=== PATIENT | female | born 1985 | race Caucasian/White ===

== ENCOUNTER 2025-04-10 09:56 | Outpatient (AMB) | payer BC, SELFPAY ==
--- NOTE | 2025-04-10 09:59 | A.OFFPC_ITS ---
Vital Signs 04/10/25 10:11 Height 5 ft 3 in Weight 118 lb 6 oz BMI 21.0 BP 108/62 Blood Pressure Location Rt brachial Position Sitting Pulse 66 Pulse Source Pulse Oximeter Temp 97.9 F Temp Source Temporal Artery Scan Pulse Oximetry (%) 100 Oxygen Delivery Method Room Air Intake Visit Reasons: ests care mole/growth on arm Intake Note: Amy presents in the office today to establish care. Patient refused both Tdap and Flu Shot. Allergies acetaminophen (From Excedrin Migraine) Allergy (Verified 04/10/25 10:42) Eye Swelling aspirin (From Excedrin Migraine) Allergy (Verified 04/10/25 10:42) Eye Swelling caffeine (From Excedrin Migraine) Allergy (Verified 04/10/25 10:42) Eye Swelling ibuprofen Allergy (Verified 04/10/25 10:42) Eye Swelling Seasonal Allergies Allergy (Verified 04/10/25 10:42) Congestion prednisone Adverse Reaction (Unknown, Verified 04/10/25 10:42) Rash Medication List - Last Reviewed 04/10/25 by Nkechi Patterson, POWER REGULATOR cholecalciferol (vitamin D3) 10 mcg PO DAILY choriogonadotropin tana,humrec (Ovidrel) mcg subcut 2XW docosahexaenoic acid ( DHA) mg PO estradiol 3 mg PO BID estradiol 2 mg PO BID follitropin tana (Gonal-F RFF Redi-Ject) 375 units subcut DAILY ganirelix mcg subcut DAILY levothyroxine 100 mcg PO DAILY medroxyprogesterone 10 mg PO DAILY menotropins (Menopur) units subcut DAILY Tobacco use date assessed: 04/10/25 Dental Screening Dental Screen Date: 04/10/25 Did you have a dental visit in the last 12 months?: Yes Did you have a dental problem in the last 6 months where you did not have access to dental care?: No Was dental information given to patient?: Patient has dentist HPI HPI Comments History of Present Illness Details 39 y/o f with hypothyroid, hx of miscarr iage, Surgery: tonsils and adenoids; ear tubes as child; breast augmentation 2020 silicone; Hysteroscopy 01/2024 & 08/2024, IVF egg retrieval Fhx: Mom with CVD; Dad with HTN, thyroid, PGM HTN, thyroid; 1 sibling with asthma Social: lives w/ , 1 dog. 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 - Stable thyroid function. - Last TSH at 1.33 on January 03. Infertility: - Undergoing IVF cycle. - Previous estrogen cycles unsuccessful due to insufficient endometrial lining response. - Transitioned to injections resulting i n improvement. - One viable embryo from last cycle, leonor toby normal. Anxiety associated with infertility treatment: - Anxiety linked to IVF procedures and m edication regimens. History of recurrent loss: - Four prior losses. - Incomplete miscarriage previously nece ssitated a D&C. Seasonal Allergy: - Documented allergies. Medication Allergy: - Unilateral eyelid swelling with ibupro fen and Excedrin migraine. - Rash reaction with prednisone. Past Surgical History - Tonsillectomy and adenoidectomy in ear ly childhood - Breast augmentation with saline implan ts - Dilation and curettage (D&C) following loss Family History - Mother has history of open-heart surge ry in childhood. - Father and paternal grandfather have k idney-related issues; grandfather nearing dialysis. 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 - Lives with and owns a dog. - Currently undergoing IVF treatment; [address] four years residing in current area. - Expresses anxiety related to medical t reatment, specifically linked to infert ility. - No reported history of substance use o r significant dietary restrictions. Health Maintenance - Recent eye exam. - Up-to-date on Pap smears and general w ellness checks. - Ongoing management of thyroid function with regular monitoring. - Discussed undergoing machine cloth trimmer dee rodríguez for routine skin evaluation. Review of Systems - Endocrine: Reports stable thyroid func tion post-radioactive iodine therapy. - Reproductive: Reports undergoing IVF, concerns with endometrial lining in past cycles. - Psychological: Reports anxiety specifi c to fertility treatments. - Allergies: Reports allergies to season al allergens, ibuprofen, Excedrin migraine, and prednisone. - Skin crusted growth l arm that fell of f; has 2 other areas that are similar Physical Exam General: Well developed, well nourished, in no acute distress. Appears stated age. Head: Normocephalic, atraumatic. Eyes: Pupils are equal, round and reactive to light and accommodation. Conjunctivae are clear. Vision grossly normal. Ears: TMs clear AU, EACS WNL. No hearing problems reported. Nose: Patent, without discharge. Neck: Supple, no adenopathy or thyromegaly. No thyroid nodules reported. Breast: Edu on SBE. Augmentation with implants noted, no issues reported. Lungs: Clear to auscultation bilaterally. No rales, rhonchi or wheeze noted. Good air flow in all haines. Heart: Regular rate and rhythm. No murmurs, click, rubs or gallops are noted. Abdomen: Bowel sounds present in all quadrants. The abdomen is soft, nontender, with no masses or organomegaly noted. No hernias are noted. : Deferred. Reviewed recommendations for routine DOCUMENTATION SUPERVISOR. Pulses: Peripheral pulses are equal and palpable bilaterally. Extremities: No clubbing, cyanosis nor edema is noted. Neurologic: Gait and station normal. Cranial Nerves 2-12 intact. Motor strength grossly symmetrical and intact. No sensory loss. Balance normal. Skin: No rashes, ulcers, or lesions noted. Turgor is good. Skin color is good. Hair and nails are without abnormalities. L upper arm flat red macule, one below that is raised w/ white crusting Psych: Normal eye contact, affect and mood appropriate, and normal interactions. Patient is alert and appropriate to context. Anxiety related to current fertility treatments noted. Results Pending Discussion Notes During the conversation, I explained the importance of ongoing thyroid monitoring, particularly in conjunction with her IVF treatment. I discussed the benefit of endocrinology consultation to optimize thyroid management during and after conception. With our patient currently in the middle of an IVF cycle, I emphasized the urgency of an endocrinology referral to manage potential thyroid changes. We talked about her recent fertility efforts and how these connect to previous pregnancies and miscarriages. The patient was informed about each step, including the requirement for TSH re-assessment and the role of dermatology in addressing longstanding dermatological concerns. We discussed potential skin findings and arranged for a dermatological evaluation. Additionally, I recommended continued monitoring of her kidney function given her family history. We talked through her anxiety with fertility treatments, reassuring her of psychological support resources. Patient was given time to ask questions. All questions were answered to their satisfaction. Assessment and Plan 1. Hypothyroidism post-radioactive iodin e therapy for hyperthyroidism - Endocrinology referral. - TSH testing. 2. Infertility - Urgent endocrinology referral. - Continue IVF. 3. Anxiety associated with infertility t reatment - Emotional support resources. 4. History of recurrent loss - Document history. 5. Seasonal Allergy - Avoid allergens. 6. Medication Allergy - Avoid known allergens. 7. Dermatology Referral - Dermatology consultation. Patient Instructions - Call endocrinology to schedule your ap pointment. - Get TSH testing one week before your e ndocrinology visit. - Attend all scheduled IVF appointments. - Avoid medications that you are allergi c to. - Know that it?s okay to reach out for e motional support. - Schedule derm appt - RTO 1 year CPE sooner as needed. Consent The patient provided informed consent for the urgent referral to endocrinology and the plan to conduct TSH testing prior to the visit. I explained the importance of optimizing thyroid function in the context of IVF treatment to reduce risks associated with hypothyroidism in . Furthermore, consent was obtained for dermatological evaluation given potential skin changes noted and her personal concern, with acknowledgment of usual wait times for appointments. The patient verbalized understanding and agreed to the outlined management processes. Patient was informed and verbally consented to the use of an ambient scribe for clinic note documentation during this visit. An additional 30 minutes was spent addressing the problem(s) noted at todays visit. This includes time spent before the visit reviewing the chart, time spent during the visit, and time spent after the visit on documentation reviewing laboratory results, diagnostic imaging, medications, performing a medically necessary evaluation, counseling on diagnoses, care coordination, ordering appropriate tests, ordering appropriate medications, review of tests performed by other providers, reporting test results with the patient, communication with other healthcare providers. PFSH Family History (Updated 04/10/25 @ 10:10 by Nkechi Patterson CMA) Brother FH: mental illness Bipolar 1 disorder Social History (Updated 04/10/25 @ 10:11 by Nkechi Patterson CMA) Housing: House Alcohol intake: current Patient Tobacco Use Status: Never used Tobacco e-Cigarette/Vaping Use: Never Used Second Hand Smoke Exposure: No service: No Current occupational status: employed Current occupation: Dairy Husbandman Current occupational exposures/hazards: No Cognitive needs: No Hearing needs: No Vision needs: No Questionnaire PHQ-9 Over the last 2 weeks, how often have you been bothered by any of the following problems? 1. Little interest or pleasure in doing things: not at all 2. Feeling down, depressed, or hopeless: not at all 3. Trouble falling or staying asleep, or sleeping too much: not at all 4. Feeling tired or having little energy: not at all 5. Poor appetite or overeating: not at all 6. Feeling bad about yourself - or that you are a failure or have let yourself or your family down: not at all 7. Trouble concentrating on things, such as reading the newspaper or watching television: not at all 8. Moving or speaking so slowly that other people could have noticed. Or the opposite - being so fidgety or restless that you have been moving around a lot more than usual: not at all 9. Thoughts that you would be better off or of hurting yourself in some way: not at all Total score: 0 Depression Screening Interpretation: Negative Depression Screening Done: Yes 12397 - PHQ-9 Billing: Yes Source: Developed by Drs. Luis Gallardo, Kristina Hughes, Senthil Moreno and colleagues, with an educational maico from [employer]. Thrive Questionnaire Date Thrive assessed: 04/10/25 I am a: Patient What is your living situation today?: I have a steady place to live Within the past 12 months, did the food you bought not last and you didn't have the money to get more?: Never true Within the past 12 months, did you worry whether your food would run out before you got money to buy more?: Never true Do you have trouble paying for medicines?: No Do you have trouble getting transportation to medical appointments?: No Do you have trouble paying your heating and electricity bill?: No Do you have trouble taking care of your child, family member or friend?: No Do you have trouble with day-to-day activities such as bathing, preparing meals, shopping, managing finances, etc.?: No Are you currently unemployed and looking for a job?: No Are you interested in more education?: No Please select the resources that you would like help with: None Currently or been in a relationship where the following occur: No concerns reported THRIVE Score: 0 AUDIT C Alcohol Use Questionnaire (AUDIT-C) 1. How often do you have a drink containing alcohol?: Monthly or less 2. How many drinks containing alcohol do you have on a typical day when you are drinking?: 1 or 2 3. How often do you have six or more drinks on one occasion?: Never Total Score: 1 Score Reviewed/Action Taken: Yes CHRISSY-7 AMB Questionnaire CHRISSY-7 Date CHRISSY - 7 assessed: 04/10/25 Feeling nervous, anxious, or on edge: 1 = Several days Not being able to stop or control worryin = Not at all Worrying too much about different things: 0 = Not at all Trouble relaxin = Not at all Being so restless that it is hard to sit still: 0 = Not at all Becoming easily annoyed or irritable: 0 = Not at all Feeling afraid as if something awful might happen: 0 = Not at all Total CHRISSY-7 score (0-4 normal; 5-9 mild; 10-14 moderate; 15-21 severe): 1 Source: Developed by Drs. Luis Gallardo, Kristina Hughes, Senthil Moreno and colleagues, with an educational maico from [employer]. CHRISSY-7 Assessment Billing HCRISSY-7 Assessment Tool: CHRISSY-7 Assessment 93680 Physical exam (Primary Care) Vital Signs: Last Vital Signs Temp 97.9 F 04/10/25 10:11 Pulse 66 04/10/25 10:11 BP 108/62 04/10/25 10:11 Pulse Ox 100 04/10/25 10:11 Oxygen Delivery Method Room Air 04/10/25 10:11 BMI result Body Mass Index 21.0 Tobacco/Smoking Status: Tobacco use Status Tobacco use date assessed 04/10/25 04/10/25 10:14 Patient Tobacco Use Status Never used Tobacco 04/10/25 10:14 e-Cigarette/Vaping Use Never Used 04/10/25 10:14 PHQ-9: PHQ-9 Score PHQ-9: Total score 0 04/10/25 10:01 Depression Screening Interpretation: Negative Thrive Assessment: Date of Thrive Assessment Date Thrive assessed 04/10/25 04/10/25 10:01 Currently or been in a relationship where the following occur: No concerns reported Coding Level of Care Code New Pt Level 3 (26700) New Pt Prev Care 18-39yr(50537 Diagnoses Encounter to establish care with new provider Z76.89 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 Influenza vaccination declined Z28.21 Tetanus, diphtheria, and acellular pertussis (Tdap) vaccination declined Z28.21 Infertility management Z31.9 Laboratory exam ordered as part of routine general medical examination Z00.00 Hx of migraines Z86.69 Seasonal allergies J30.2 Skin lesion L98.9 Encounter for general adult medical examination without abnormal findings Z00.00 Additional Codes CHRISSY-7 Assessment Billing - CHRISSY-7 Assessment Tool: CHRISSY-7 Assessment 88949 ([id number]) PHQ-9 - 57859 - PHQ-9 Billing: Yes ([id number]) Assessment & Plan Assessment & Plan (1) Encounter to establish care with new provider: Code(s): Z76.89 - Persons encountering health services in other specified circumstances (2) Hypothyroid: Code(s): E03.9 - Hypothyroidism, unspecified Category: Medical Qualifiers: Hypothyroidism type: due to William's thyroiditis Qualified Code(s): E06.3 - Autoimmune thyroiditis (3) Influenza vaccination declined: Code(s): Z28.21 - Immunization not carried out because of patient refusal Category: Medical (4) Tetanus, diphtheria, and acellular pertussis (Tdap) vaccination declined: Code(s): Z28.21 - Immunization not carried out because of patient refusal Category: Medical (5) Infertility management: Comment: [facility] Code(s): Z31.9 - Encounter for procreative management, unspecified Category: Medical (6) Laboratory exam ordered as part of routine general medical examination: Code(s): Z00.00 - Encounter for general adult medical examination without abnormal findings Category: Medical (7) Hx of migraines: Code(s): Z86.69 - Personal history of other diseases of the nervous system and sense organs Category: Medical (8) Seasonal allergies: Code(s): J30.2 - Other seasonal allergic rhinitis Category: Medical (9) Skin lesion: Code(s): L98.9 - Disorder of the skin and subcutaneous tissue, unspecified Category: Medical (10) Encounter for general adult medical examination without abnormal findings: Onset Date: ~04/10/25 Code(s): Z00.00 - Encounter for general adult medical examination without abnormal findings Category: Medical Plan . Orders: Orders TSH reflex Free T4 Today E06.3 - Autoimmune thyroiditis Lipid Panel Today E06.3 - Autoimmune thyroiditis, Z00.00 - Encounter for general adult medical examination without abnormal findings Comprehensive Met. Panel Today E06.3 - Autoimmune thyroiditis, Z00.00 - Encounter for general adult medical examination without abnormal findings Referrals Endocrinology Referral E06.3 - Autoimmune thyroiditis Dermatology Referral L98.9 - Disorder of the skin and subcutaneous tissue, unspecified Patient Instructions: Walk-In Care (Urgent Care): We Make it Easy Walk-in for urgent medical issues such as: ? Seasonal Allergies ? Insect Bites ? Cough ? Diarrhea ? Acute Asthma Attacks ? Back, Knee or Joint Pain ? Ear Infection ? Fever without a Rash ? Headaches ? Nausea ? Miller Eye, Rash or Skin Irritation ? Sore Throat ? Sports Physicals ? Vomiting Most insurances are accepted. Patients do not need to be part of the [facility] to seek care at the walk-in clinic. Locations [facility] [place] [address] ? [phone] [facility] Walk-In Care in [place] provides services to ages 18 and over. Open Tuesday-Tuesday: 7 a.m. to 5 p.m. and Tuesday: 9 a.m. to 3 p.m.* *Hours may vary due to staffing availability. To confirm Walk-In Care hours in [place], please call [phone]. [address] [place] [address] ? [phone] [facility] Walk-In Care in [place] provides services to ages 12 and over. Open Tuesday-Tuesday: 8 a.m. to 5 p.m. Hours may vary due to staffing availability. To confirm Walk-In Care hours in [place], please call [phone]. LABORATORY SERVICES: [facility] ? Primary Location [address] [place] [address] Tuesday through Tuesday 6:00 AM ? 5:00 PM Tuesday 7:00 AM ? 11:00 AM* [phone] The [facility] is centrally located near the front entrance of the [facility] for easy outpatient access. Convenient parking is provided for outpatients. *Hours may vary due to staffing availability. To confirm Laboratory hours for any location, please call [phone]. Offsite Location For your convenience, we offer offsite laboratory draw stations at the following locations: [address] [facility], [place] ? [facility] [address] [facility] [address], [address], [place] Tuesday through Tuesday 7:30 AM ? 1:00 PM* [phone] *Hours may vary due to staffing availability. To confirm Laboratory hours for any location, please call [phone]. [place] ? [facility] [address] [facility] [place], [place] Tuesday through Tuesday 6:00 AM ? 3:30 PM* Tuesday 6:30 AM ? 3 PM* [phone] *Hours may vary due to staffing availability. To confirm Laboratory hours for any location, please call [phone] [place] [address] Tuesday through Tuesday 7:30 AM ? 4:00 PM* [phone] *Hours may vary due to staffing availability. To confirm Laboratory hours for any location, please call [phone] [place] [address] Tuesday through 9:00 AM ? 4:00 PM* *Hours may vary due to staffing availability. To confirm Laboratory hours for any location, please call [phone]. Appointments are not necessary. Walk-ins are welcome. Like all the departments throughout the [facility], our Lab undergoes frequent reviews to ensure the quality and accuracy of test results, and our staff takes special pride in its status as a nationally accredited facility. Patient Portal: [facility] ONE PATIENT. ONE RECORD. BETTER CARE. [facility] has a fully integrated, cutting- edge mobile electronic health information system that has revolutionized the way we care for our patients and manage our organization. This system improves communication and coordination enabling us to provide safe, higher-quality care, and an overall positive experience for staff and patients. Our first priority, as always, is to deliver the highest quality care possible. The system is running in the background supporting that priority. This portal is for all [facility] services and practices. If you are experiencing any technical difficulties with enrolling or logging into the Patient Portal please complete the [facility] Patient Portal Technical Support Form. [facility] now offers a new secure on-line interactive tool for patients to review their health information ? ?Patient Portal. This interactive web portal will enable patients and their families to take an active role in their care by providing easy, secure access to their health information via the internet. The Patient Portal provides patients with instant access to their health information, including laboratory results, medications, allergies, demographic information, visit history, and more. In addition to managing their own care, parents and health care proxies with authorized consent will appreciate the ability to access the records of those individuals for whom they provide care. Please note: if you wish to gain access (Proxy) to another patient?s portal, you will be required to come to the Medical Records Department in person at [facility]. Both the patient giving proxy access and the proxy will need to provide photo identification and complete the appropriate authorization. The Patient Portal also allows track their appointments online. The [facility] Patient Portal also saves patients time by allowing them to submit updates to their demographic and contact information prior to their visits. Portal email notifications will also alert patients to any new activity on their portal, such as test results and new appointments. In order to initially enroll in the [facility] Patient Portal, you will need to enter some required information including the following: * your [facility] Medical Record number * your personal home email address * name * date of Please note: In order to enroll in the [facility] Patient Portal, we need to have your email address on file in your electronic medical record. ?The email address needs to be specific for one person (yourself) in order for your Portal enrollment to be successful. ?You can update your email address in person with our Registration staff when you are registering for a hospital visit. ?Otherwise, you will need to come to the Health Information Management (Medical Records) Department at [facility]. ?We are open from Tuesday ? Tuesday from 7:30 a.m. ? 4:30 p.m. ?You will be required to present a photo id. Once you have successfully enrolled in the Patient Portal, you will receive a one-time user id and password for the Portal, sent to your email address. ?This will allow you to log into the Patient Portal within 99 hrs and reset your own logon id and password, and define personal security questions. ?Once your permanent login and password have been set, you can log into the [facility] Patient Portal at any time via the blue button above or from the Portal Logon button on any page of the [facility] website. [facility] encourage all of our patients to enroll in Patient Portal as it presents a valuable opportunity for patients and their families to actively participate in their care and stay healthy Welcome to [facility]. ?We look forward to working with you. Health screenings for women You should visit your health care provider from time to time, even if you are healthy. The purpose of these visits is to: Screen for medical issues Assess your risk for future medical problems Encourage a healthy lifestyle Update vaccinations and other preventive care services Help you get to know your provider in case of an illness Information Even if you feel fine, you should still see your provider for regular checkups. These visits can help you avoid problems in the future. For example, the only way to find out if you have high blood pressure is to have it checked regularly. High blood sugar and high cholesterol levels also may not have any symptoms in the early stages. A simple blood test can check for these conditions. There are specific times when you should see your provider or receive specific health screenings. The [place] Preventive Services Task Force publishes a list of recommended screenings. Below are screening guidelines for women ages 18 to 39. BLOOD PRESSURE SCREENING Your blood pressure should be checked at least once every 3 to 5 years if: Your blood pressure is in the normal range (top number less than 120 mm Hg and bottom number less than 80 mm Hg) You don't have risk factors for high blood pressure Ask your provider if you need your blood pressure checked more often if: The top number is 120 to 129 mm Hg or the bottom number is 70 to 79 mm Hg You have diabetes, heart disease, kidney problems, are overweight, or have certain other health conditions You have a first-degree relative with high blood pressure You are Black You had high blood pressure during a If the top number is 130 mm Hg or greater or the bottom number is 80 mm Hg or greater, this is considered stage 1 hypertension. Schedule an appointment with your provider to learn how you can reduce your blood pressure. Watch for blood pressure screenings in your area. Ask your provider if you can stop in to have your blood pressure checked. BREAST CANCER SCREENING Experts do not agree about the benefits of breast self-exams in finding breast cancer or saving lives. Talk to your provider about what is best for you. A screening mammogram is not recommended for most women under age 40. Your provider may discuss and recommend mammograms, MRI scans, or ultrasounds if you have an increased risk for breast cancer, such as: A mother or sister who had breast cancer at a young age (most often starting screening earlier than the age the close relative was diagnosed) You carry a high-risk genetic marker CERVICAL CANCER SCREENING Cervical cancer screening should start at age 21 years unless your provider advises otherwise. After the first test: Women ages 21 through 29 should have a Pap test every 3 years. Exoprts do not agree on whether HPV testing is recommended for this age group. Women ages 30 through 65 should be screened with either a Pap test every 3 years or the HPV test every 5 years or both tests every 5 years (called cotesting ). Women who have been treated for precancer (cervical dysplasia) should continue to have Pap tests for 20 years after treatment or until age 65, whichever is longer. If you have had your uterus and cervix removed (total hysterectomy), and you have not been diagnosed with cervical cancer or precancer (high grade cervical neoplasia), you do not need cervical cancer screening. CHOLESTEROL SCREENING Cholesterol screening should begin at: Age 45 for women with no known risk factors for coronary heart disease Age 20 for women with known risk factors for coronary heart disease Repeat cholesterol screening should take place: Every 5 years for women with normal cholesterol levels More often if changes occur in lifestyle (including weight gain and diet) More often if you have diabetes, heart disease, kidney problems, or certain other conditions DIABETES SCREENING You should be screened for diabetes starting at age 35 and then repeated every 3 years if you have no risk factors for diabetes. Screening may need to start earlier and be repeated more often if you have other risk factors for diabetes, such as: You have a first degree relative with diabetes. You are overweight or have obesity. You have high blood pressure, prediabetes, or a history of heart disease. Screening for diabetes should be done if you are planning to become and you are overweight and have other risk factors such as high blood pressure. DENTAL EXAM Go to the dentist once or twice every year for an exam and cleaning. Your dentist will evaluate if you need more frequent visits. EYE EXAM Have an eye exam every 5 to 10 years before age 40. If you have vision problems, have an eye exam every 2 years or more often if recommended by your provider. You should have an eye exam that includes an examination of your retina (back of your eye) at least every year if you have diabetes. IMMUNIZATIONS Commonly needed vaccines include: Flu shot: get one every year. COVID-19 vaccine: ask your provider what is best for you. Tetanus-diphtheria and acellular pertussis (Tdap) vaccine: have one at or after age 19 as one of your tetanus-diphtheria vaccines if you did not receive it as an adolescent. Tetanus-diphtheria: have a booster (or Tdap) every 10 years. Varicella vaccine: receive 2 doses if you never had chickenpox or the varicella vaccine. Hepatitis B vaccine: receive 2, 3, or 4 doses, depending on your exact circumstances. Measles, mumps, and rubella (MMR) vaccine: receive 1 to 2 doses if you are not already immune to MMR. Your provider can tell you if you are immune. Ask your provider about the human papillomavirus (HPV) vaccine if: You have not received the HPV vaccine in the past You have not completed the full vaccine series (you should catch up on this shot) Ask your provider if you should receive other immunizations if you have certain health problems that increase your risk for some diseases such as pneumonia. INFECTIOUS DISEASE SCREENING Women who are sexually active should be screened for chlamydia and gonorrhea up until age 25. Women 25 years and older should be screened for chlamydia and gonorrhea if at high risk. Screening for hepatitis C: All adults ages 18 to 79 should get a one-time test for hepatitis C. people should be screened at every . Screening for human immunodeficiency virus (HIV): All people ages 15 to 65 should get a one-time test for HIV. Depending on your lifestyle and medical history, you may also need to be s creened for infections such as syphilis and HIV, as well as other infections. PHYSICAL EXAM All adults should visit their provider from time to time, even if they are healthy. The purpose of these visits is to: Screen for disease Assess your risk of future medical problems Encourage a healthy lifestyle Update your vaccinations and other preventive care services Maintain a relationship with a provider in case of an illness Your height, weight, and BMI should be checked at every exam. During your exam, your provider may ask you about: Depression and anxiety Diet and exercise Alcohol and tobacco use Safety issues, such as using seat belts, smoke detectors, and intimate partner violence Your medicines and risk for interactions SKIN SELF-EXAM Your provider may check your skin for signs of skin cancer, especially if you're at high risk, such as if you: Have had skin cancer before Have close relatives with skin cancer Have a weakened immune system OTHER SCREENING Talk with your provider about colon cancer screening if you have a strong family history of colon cancer or polyps, or if you have had inflammatory bowel disease or polyps yourself. Routine bone density screening of women under 40 is not recommended.
[2025-04-10 10:11] VITALS: BP 108/62; PULSE 66; TEMP 36.6; O2SAT 100; BMI 21.0
== END 2025-04-10 10:54 | disposition home or self-care (01) ==
LOC: HO.HMCFM 09:57
PROVIDERS: PCP Nurse Practitioner Family; Visit Provider Nurse Practitioner Family
DX: Z00.00 Encounter for general adult medical examination without abnormal findings (principal); E06.3 Autoimmune thyroiditis; J30.2 Other seasonal allergic rhinitis; L98.9 Disorder of the skin and subcutaneous tissue, unspecified; Z28.21 Immunization not carried out because of patient refusal; Z31.9 Encounter for procreative management, unspecified; Z86.69 Personal history of other diseases of the nervous system and sense organs

== ENCOUNTER → 2025-04-10 09:56 | Outpatient (BNVA) | payer BC, SELFPAY | PROVIDERS: PCP Nurse Practitioner Family; Visit Provider Nurse Practitioner Family | DX: Z00.00 Encounter for general adult medical examination without abnormal findings (principal); E03.9 Hypothyroidism, unspecified; F41.9 Anxiety disorder, unspecified; N97.9 Female infertility, unspecified; E06.3 Autoimmune thyroiditis; J30.2 Other seasonal allergic rhinitis; L98.9 Disorder of the skin and subcutaneous tissue, unspecified; Z76.89 Persons encountering health services in other specified circumstances | CPT/HCPCS: 96127 ==

== ENCOUNTER 2025-06-21 15:52 | Outpatient (AMB) | payer BC, SELFPAY ==
[2025-06-21 15:54] VITALS: BP 112/72; PULSE 74; O2SAT 100; BMI 21.9
--- NOTE | 2025-06-21 15:54 | MHC.OFFVIS ---
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 Accompanied by: Self / Same As Patient Allergies acetaminophen (From Excedrin Migraine) Allergy (Verified 06/21/25 15:59) Eye Swelling aspirin (From Excedrin Migraine) Allergy (Verified 06/21/25 15:59) Eye Swelling caffeine (From Excedrin Migraine) Allergy (Verified 06/21/25 15:59) Eye Swelling ibuprofen Allergy (Verified 06/21/25 15:59) Eye Swelling Seasonal Allergies Allergy (Verified 06/21/25 15:59) Congestion prednisone Adverse Reaction (Unknown, Verified 06/21/25 15:59) Rash Medication List - Last Reconciled 06/21/25 by Yeset Chelle Maurer MD cholecalciferol (vitamin D3) 10 mcg PO DAILY choriogonadotropin tana,humrec (Ovidrel) mcg subcut 2XW docosahexaenoic acid ( DHA) mg PO estradiol 3 mg PO BID estradiol 2 mg PO BID follitropin tana (Gonal-F RFF Redi-Ject) 375 units subcut DAILY ganirelix mcg subcut DAILY levothyroxine 100 mcg PO DAILY medroxyprogesterone 10 mg PO DAILY menotropins (Menopur) units subcut DAILY HPI Comments Details: 39 years old female with past medical history of allergies, migraines, hypothyroidism, seen in the office for initial evaluation and management of hypothyroidism. Hypothyroidism post-radioactive iodine therapy for hyperthyroidism: Hyperthyroidism treated with radioactive iodine in 2007. She takes levothyroxine first thing in the am, at least 1 hour away from food and other meds. She takes after lunch, so m,ore than 3 hours away. She has been working with IVF to achieve . She has a history of 3 miscarriages, 1 ectopic , unclear etiology. She has been taking levothyroxine since. She was on 100 mcg until April 2024, then levothyroxine changed to 150 mcg due to TSH 5.12, then changed to 125 mcg, last changed a few weeks ago, around 05/30/25. She is currently 12wk today. She reports feeling fatigue, constipation, reports cold intolerance, dry skin. Dad and paternal grandmother has history of hypothyroidism, unclear if William's. Mother has Celiac. No thyroid cancer history. No other radiation exposure. No biotin containing supplements. Physical exam: General: Well appearing. NAD. Neck/Thyroid: Thyroid not palpable, no nodules. Eyes: No conjunctival injection, not lid lag or proptosis CV: RRR, no murmur. No edema. Resp:Lungs clear to auscultation bilaterally Abdomen: Soft, nontender. nondistended Extremities/Neuro: No weakness or tremor of outstretched hands Labs PFSH Medical History Thyroid disorder Surgical History History of hysteroscopy Hx of breast augmentation Hx of tonsillectomy Family History Brother FH: mental illness Bipolar 1 disorder Asthma Father HTN (hypertension) Thyroid disorder Paternal Grandmother HTN (hypertension) Thyroid disorder Mother Cardiovascular disease Social History Household Members: Significant Other and Children Both parents involved: No Caregiver staying overnight: No Housing: House Are you a primary intensive care unit nurse to a significant other at home: Yes Do you presently have visiting nurse or other home services: No 75 years or older and lives alone: No Alcohol intake: never Patient Tobacco Use Status: Never used Tobacco e-Cigarette/Vaping Use: Never Used Second Hand Smoke Exposure: No service: No Current occupational status: employed Current occupation: [employer] Teacher Current occupational exposures/hazards: No Cognitive needs: No Hearing needs: No Vision needs: No Physical Exam Vital Signs: Last Vital Signs Pulse 74 06/21/25 15:54 BP 112/72 06/21/25 15:54 Pulse Ox 100 06/21/25 15:54 Oxygen Delivery Method Room Air 06/21/25 15:54 BMI result Body Mass Index 21.9 Assessment & Plan Assessment & Plan (1) Hypothyroid: Code(s): E03.9 - Hypothyroidism, unspecified Category: Medical Qualifiers: 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 She has been taking levothyroxine since. She was on 100 mcg until April 2024, then levothyroxine changed to 150 mcg due to TSH 5.12, then changed to 125 mcg, last changed a few weeks ago, around 05/30/25. She is currently 12 weeks . Goal for 2nd and 3rd trimester would be TSH <2.5. 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
== END 2025-06-21 16:37 | disposition home or self-care (01) ==
LOC: HO.ENCR 15:53
PROVIDERS: PCP Nurse Practitioner Family; Visit Provider Student in an Organized Health Care Education/Training Program
DX: E06.3 Autoimmune thyroiditis (principal)
CPT/HCPCS: 99204